=== PATIENT | female | born 1985 | race African-American/Black ===

== ENCOUNTER 2017-10-10 02:23 | Emergency (ER) | payer OTHER ==
[2017-10-10 02:44] VITALS: BP 113/101; PULSE 100; TEMP 97.6; BMI 32.3
--- NOTE | 2017-10-10 03:12 | PDOC ---
History of Present Illness - General History Source: Patient Exam Limitations: No Limitations - History of Present Illness Initial Comments: 10/10/17 03:39 The patient is a 32 year old female with no significant PMH who presents to the emergency department with headaches for the past week and shortness of breath for the past three days. The patient states she is experiencing shortness of breath approximately once a day. The patient states her SOB is exacerbated with exertion. The patient reports she regularly does cardio exercises but does not feel SOB while exercising. She notes her most recent episode of shortness of breath was about 10 minutes ago. The patient notes she normally has headaches when she is on her menses. The patient states she took Excedrin for the headache with no relief but expresses more concerned about her SOB. The patient reports her LMP was at the beginning of this month. The patient also states she has had some drastic diet changes recently. The patient denies chest pain and dizziness. Denies fever, chills, nausea, vomit, diarrhea and constipation. Denies dysuria, frequency, urgency and hematuria. The patient denies any recent travel or long trips. Allergies: NKA Past surgical history: Right breast surgery (?) Social history: No reported alcohol, drug, or cigarette use. PCP: Dr. Avila <Jeni Jimenez - Last Filed: 10/10/17 04:19> <Vicenta Wang - Last Filed: 10/10/17 06:38> - General Chief Complaint: Headache Stated Complaint: SHORTNESS OF BREATH Time Seen by Provider: 10/10/17 02:45 Past History <Jeni Jimenez - Last Filed: 10/10/17 04:19> - Past Medical History COPD: No Thyroid Disease: No - Reproductive History (#): 3 Para: 1 Therapeutic (s) & number: Yes (2) - Immunization History Immunization Up to Date: Yes - Suicide/Smoking/Psychosocial Hx Smoking History: Never smoked Have you smoked in the past 12 months: No Information on smoking cessation initiated: No Hx Alcohol Use: No Drug/Substance Use Hx: No Substance Use Type: None <Vicenta Wang - Last Filed: 10/10/17 06:38> - Past Medical History Allergies/Adverse Reactions: Allergies Allergy/AdvReac Type Severity Reaction Status Date / Time No Known Allergies Allergy Verified 10/10/17 02:41 Home Medications: Ambulatory Orders Aspirin/Acetaminophen/Caffeine [Excedrin Migraine Caplet] 1 each PO PRN PRN Review of Systems - Review of Systems Able to Perform ROS?: Yes Comments:: 10/10/17 03:43 GENERAL/CONSTITUTIONAL: No fever or chills. No weakness. HEAD, EYES, EARS, NOSE AND THROAT: No change in vision. No ear pain or discharge. No sore throat. CARDIOVASCULAR: (+) Shortness of breath. No chest pain. RESPIRATORY: No cough, wheezing, or hemoptysis. GASTROINTESTINAL: No nausea, vomiting, diarrhea or constipation. GENITOURINARY: No dysuria, frequency, or change in urination. MUSCULOSKELETAL: No joint or muscle swelling or pain. No neck or back pain. SKIN: No rash NEUROLOGIC: (+) headache. No vertigo, loss of consciousness, or change in strength/sensation. ENDOCRINE: No increased thirst. No abnormal weight change. HEMATOLOGIC/LYMPHATIC: No anemia, easy bleeding, or history of blood clots. ALLERGIC/IMMUNOLOGIC: No hives or skin allergy. <Jeni Jimenez - Last Filed: 10/10/17 04:19> *Physical Exam - Vital Signs Last Vital Signs Temp Pulse Resp BP Pulse Ox 97.6 F 100 H 16 113/101 100 10/10/17 02:41 10/10/17 02:41 10/10/17 02:41 10/10/17 02:41 10/10/17 02:41 - Physical Exam Comments: 10/10/17 03:45 ADULT EXAM GENERAL: Awake, alert, and fully oriented, in no acute distress HEAD: No signs of trauma EYES: PERRLA, EOMI, sclera anicteric, conjunctiva clear ENT: Auricles normal inspection, hearing grossly normal, nares patent, oropharynx clear without exudates. Moist mucosa NECK: Normal ROM, supple, no lymphadenopathy, JVD, or masses LUNGS: Breath sounds equal, clear to auscultation bilaterally. No wheezes, and no crackles HEART: (+) Splitting of S1. Regular rate and rhythm, normal S2, no murmurs, rubs or gallops ABDOMEN: Soft, nontender, normoactive bowel sounds. No guarding, no rebound. No masses EXTREMITIES: Normal range of motion, no edema. No clubbing or cyanosis. No cords, erythema, or tenderness NEUROLOGICAL: Cranial nerves II through XII grossly intact. Normal speech, normal gait SKIN: Warm, Dry, normal turgor, no rashes or lesions noted. <Jeni Jimenez - Last Filed: 10/10/17 04:19> - Vital Signs Last Vital Signs Temp Pulse Resp BP Pulse Ox 97.6 F 100 H 16 113/101 100 10/10/17 02:41 10/10/17 02:41 10/10/17 02:41 10/10/17 02:41 10/10/17 02:41 <Vicenta Wang - Last Filed: 10/10/17 06:38> ED Treatment Course - LABORATORY CBC & Chemistry Diagram: 10/10/17 03:30 10/10/17 03:30 <Jeni Jimenez - Last Filed: 10/10/17 04:19> - LABORATORY CBC & Chemistry Diagram: 10/10/17 03:30 10/10/17 03:30 - RADIOLOGY Radiology Studies Ordered: Category Date Time Status CHEST PA & LAT [RAD] Stat Radiology 10/10/17 03:12 Ordered <Vicenta Wang - Last Filed: 10/10/17 06:38> Medical Decision Making - Medical Decision Making 10/10/17 06:37 Pt comes with SOB and weakness. SHe has been dieting and barely eating and drinking and she is on a new exercise regimen. CXR nomal. Labs normal. But pt has elevated d-dimer. Pt had a CTA and it is normal Pt advised to have a less severe diet exercise regimen. Stable for d/c <Vicenta Wang - Last Filed: 10/10/17 06:38> *DC/Admit/Observation/Transfer - Attestations Scribe Attestion: 10/10/17 03:47 Documentation prepared by Jeni Jimenez, acting as internist medical doctor md for Vicenta Wang MD. <Jeni Jimenez - Last Filed: 10/10/17 04:19> <Vicenta Wang - Last Filed: 10/10/17 06:38> Diagnosis at time of Disposition: Dyspnea - Discharge Dispostion Disposition: HOME Condition at time of disposition: Stable - Referrals Referrals: Austin,David N., MD [Primary Care Provider] - - Patient Instructions Printed Discharge Instructions: The Mediterranean Diet and Good Health - Post Discharge Activity
[2017-10-10 03:44] LABS: BASO % 0.3 % (0-2.0); HEMATOCRIT 35.1 % (32.4-45.2); HEMOGLOBIN 11.4 GM/dL (10.7-15.3); LYMPH % 26.5 % (8-40); MCH 27.5 pg (25.7-33.7); MCHC 32.4 g/dl (32.0-36.0); MEAN PLT VOLUME 9.7 fl (7.5-11.1); MONO % 12.9 % (3.8-10.2); NEUT % 59.3 % (42.8-82.8); PLATELET COUNT 244 K/MM3 (134-434); RBC 4.13 M/mm3 (3.60-5.2); WHITE BLOOD COUNT 5.8 K/mm3 (4.0-10.0)
[2017-10-10 03:54] LABS: INR 1.19 (0.82-1.09); PROTHROMBIN TIME (PATIENT) 13.5 SEC (9.98-11.88)
[2017-10-10 04:15] LABS: ALBUMIN 3.1 g/dl (3.4-5.0); ANION GAP 12 (8-16); BILIRUBIN,TOTAL 0.2 mg/dL (0.2-1.0); BLOOD UREA NITROGEN 18 mg/dL (7-18); CALCIUM 8.7 mg/dL (8.5-10.1); CHLORIDE 107 mmol/L (98-107); CO2 21 mmol/L (21-32); CREATININE 0.6 mg/dL (0.55-1.02); GLUCOSE,RANDOM 107 mg/dL (74-106); POTASSIUM 4.3 mmol/L (3.5-5.1); SGOT/AST 23 U/L (15-37); SGPT/ALT 31 U/L (12-78); SODIUM 140 mmol/L (136-145); TOT PROT 7.3 g/dl (6.4-8.2)
[2017-10-10 04:17] LABS: ALK PHOS 57 U/L (45-117)
[2017-10-10 06:46] LABS: COCAINE, UR NEGATIVE ng/ml (CUTOFF=300); METHADONE, UR NEGATIVE ng/ml (CUTOFF=300); OPIATES, URI NEGATIVE ng/ml (CUTOFF=300); PHENCYCLIDINE,URINE NEGATIVE ng/ml (CUTOFF=25); URINE AMPHETAMINES NEGATIVE ng/ml (CUTOFF=500); URINE BARBITURATES NEGATIVE ng/ml (CUTOFF=200); URINE BENZODIAZEPINES NEGATIVE ng/ml (CUTOFF=200)
--- NOTE | 2017-10-10 10:27 | EKG ---
Test Reason : Blood Pressure : / mmHG Vent. Rate : 086 BPM Atrial Rate : 086 BPM P-R Int : 152 ms QRS Dur : 082 ms QT Int : 372 ms P-R-T Axes : 042 046 037 degrees QTc Int : 445 ms NORMAL SINUS RHYTHM NORMAL ECG NO PREVIOUS ECGS AVAILABLE BASELINE ARTIFACT Confirmed by RACHEL DAVID, TUNDE ([id number]) on 10/10/2017 10:27:01 AM Referred By: Confirmed By:TUNDE RAMOS MD
== END 2017-10-10 06:12 | disposition home or self-care (01) ==
LOC: JER 02:23
DX: R06.09 Other forms of dyspnea (principal)
CPT/HCPCS: 36415; 71275-TC; 80053; 80307; 82550; 84484; 84702; 85025; 85379; 85610; 93005; 93010; 99282-25

== ENCOUNTER 2023-07-20 14:28 | Emergency (ER) | payer OTHER ==
[2023-07-20 14:42] VITALS: BP 124/73; PULSE 81; RESP 20; TEMP 98; BMI 36.8
[2023-07-20] MEDS ORDERED: ACETAMINOPHEN 1000 MG/100 ML BAG IVPB ONE (15:31)
[2023-07-20] MEDS ORDERED: SODIUM CHLORIDE 0.9% 500 ML INFUS.BAG IV ONE (15:31)
[2023-07-20] MEDS ORDERED: ACETAMINOPHEN INJECTION 100 ML IVPB ONE (16:38)
[2023-07-20 16:44] LABS: BASO % 0.4 % (0-2.0); EOS % 0.5 % (0-4.5); HEMATOCRIT 37.7 % (32.4-45.2); HEMOGLOBIN 12.7 GM/dL (10.7-15.3); LYMPH % 21.7 % (8-40); MCH 29.7 pg (25.7-33.7); MCHC 33.8 g/dl (32.0-36.0); MEAN CELL VOLUME 87.7 fl (80-96); MEAN PLT VOLUME 10.2 fl (7.5-11.1); MONO % 5.6 % (3.8-10.2); NEUT % 71.8 % (42.8-82.8); PLATELET COUNT 248 10^3/uL (134-434); RDW 13.8 % (11.6-15.6); WHITE BLOOD COUNT 9.5 K/mm3 (4.0-10.0)
[2023-07-20 16:55] LABS: POTASSIUM 4.7 mmol/L (3.5-5.1)
[2023-07-20 16:57] LABS: CALCIUM 8.9 mg/dL (8.5-10.1)
[2023-07-20 16:58] LABS: ALBUMIN 3.4 g/dl (3.4-5.0); BLOOD UREA NITROGEN 8.9 mg/dL (7-18)
[2023-07-20 17:00] LABS: CREATININE 0.7 mg/dL (0.55-1.3)
[2023-07-20 17:02] LABS: BILIRUBIN,TOTAL 0.2 mg/dL (0.2-1); TOT PROT 7.6 g/dl (6.4-8.2)
[2023-07-20 17:12] LABS: URINE APPEARANCE CLEAR; URINE BILIRUBIN NEGATIVE (NEGATIVE); URINE COLOR YELLOW; URINE GLUCOSE (UA) NEGATIVE (NEGATIVE); URINE KETONE TRACE (NEGATIVE); URINE LEUK ESTERASE NEGATIVE (NEGATIVE); URINE NITRITE NEGATIVE (NEGATIVE); URINE PROTEIN NEGATIVE (NEGATIVE); URINE UROBILINOGEN 0.2 mg/dL (0.2-1.0)
[2023-07-20 17:16] LABS: HCG,QUALITATIVE URINE Positive
== END 2023-07-20 19:04 | disposition home or self-care (01) ==
LOC: JER 14:28
PROC: 3E033NZ Introduction of Analgesics, Hypnotics, Sedatives into Peripheral Vein, Percutaneous Approach (ICD-10-PCS; principal; 2023-07-20)
DX: O26.891 Other specified pregnancy related conditions, first trimester (principal); R10.9 Unspecified abdominal pain; R14.0 Abdominal distension (gaseous); R63.0 Anorexia; R11.0 Nausea; R09.81 Nasal congestion; O99.211 Obesity complicating pregnancy, first trimester; E66.01 Morbid (severe) obesity due to excess calories; Z68.36 Body mass index [BMI] 36.0-36.9, adult; Z20.822 Contact with and (suspected) exposure to COVID-19; Z3A.01 Less than 8 weeks gestation of pregnancy
CPT/HCPCS: 0241U-QW; 36415; 76817-TC; 80053; 81003; 83690; 84702; 84703; 85025; 87086; 99284-25

== ENCOUNTER 2023-07-26 16:49 | Emergency (ER) | payer OTHER ==
[2023-07-26 17:00] VITALS: TEMP 98.2; BMI 37.5
[2023-07-26 17:57] LABS: HEMATOCRIT 38.1 % (32.4-45.2); HEMOGLOBIN 12.1 GM/dL (10.7-15.3); MCH 28.7 pg (25.7-33.7); MCHC 31.7 g/dl (32.0-36.0); MEAN CELL VOLUME 90.4 fl (80-96); MEAN PLT VOLUME 10.3 fl (7.5-11.1); PLATELET COUNT 237 10^3/uL (134-434); RBC 4.21 M/mm3 (3.60-5.2); RDW 13.6 % (11.6-15.6); WHITE BLOOD COUNT 11.2 K/mm3 (4.0-10.0)
[2023-07-26 18:04] LABS: INR 1.03 (0.83-1.09)
[2023-07-26 18:07] LABS: ACTIVATED PTT 32.7 SECONDS (25.2-36.5)
[2023-07-26 18:14] LABS: POTASSIUM 4.2 mmol/L (3.5-5.1)
[2023-07-26 18:16] LABS: ALBUMIN 3.4 g/dl (3.4-5.0); CALCIUM 8.7 mg/dL (8.5-10.1)
[2023-07-26 18:17] LABS: BLOOD UREA NITROGEN 12.6 mg/dL (7-18)
[2023-07-26 18:19] LABS: CREATININE 0.8 mg/dL (0.55-1.3)
[2023-07-26 18:21] LABS: BILIRUBIN,TOTAL 0.2 mg/dL (0.2-1); TOT PROT 7.7 g/dl (6.4-8.2)
[2023-07-26 18:53] LABS: URINE APPEARANCE CLEAR; URINE BILIRUBIN NEGATIVE (NEGATIVE); URINE COLOR YELLOW; URINE GLUCOSE (UA) NEGATIVE (NEGATIVE); URINE KETONE TRACE (NEGATIVE); URINE LEUK ESTERASE NEGATIVE (NEGATIVE); URINE NITRITE NEGATIVE (NEGATIVE); URINE PROTEIN NEGATIVE (NEGATIVE)
[2023-07-27 00:59] VITALS: BP 113/60; PULSE 70; RESP 16
== END 2023-07-27 01:14 | disposition home or self-care (01) ==
LOC: JERFT 16:49
DX: O26.891 Other specified pregnancy related conditions, first trimester (principal); R06.02 Shortness of breath; Z3A.01 Less than 8 weeks gestation of pregnancy; Z20.822 Contact with and (suspected) exposure to COVID-19
CPT/HCPCS: 0241U-QW; 36415; 71275-TC; 76817-TC; 80053; 81003; 84702; 85027; 85610; 85730; 93005; 93010; 99285-25; Q9967

== ENCOUNTER 2024-02-22 05:25 | Inpatient (IN) | payer OTHER ==
[2024-02-22 06:13] VITALS: BMI 43.8
[2024-02-22] MEDS: ELECTROLYTE-148 SOLN 500 ML IV SCH ×2 (06:30→06:45)
[2024-02-22] MEDS: CITRIC ACID/SODIUM CITRATE 30 ML UNIT-DOSE CUP PO ONE (07:00)
[2024-02-22] MEDS ORDERED: ONDANSETRON 4 MG/2 ML VIAL IVPUSH PRN (07:45)
[2024-02-22] MEDS ORDERED: ACETAMINOPHEN 325 MG TABLET (FP) PO PRN (07:45)
[2024-02-22] MEDS ORDERED: IBUPROFEN 600 MG TABLET (FP) PO PRN (07:45)
[2024-02-22] MEDS ORDERED: morphine SULFATE/PF 1 MG/2 ML (2cc Syringe - QUVA) ONE (07:52)
[2024-02-22] MEDS ORDERED: ceFAZolin SODIUM 1 GM VIAL ONE (07:53)
[2024-02-22] MEDS ORDERED: SODIUM CHLORIDE 0.9% P/F 10 ML VIAL IJ ONE (07:53)
[2024-02-22] MEDS ORDERED: PHENYLEPHRINE HCL 10 MG/1 ML SINGLE DOSE VIAL ONE (07:53)
[2024-02-22] MEDS ORDERED: METOCLOPRAMIDE HCL INJECTION 10 MG/2 ML VIAL ONE (08:26)
[2024-02-22] MEDS ORDERED: ONDANSETRON 4 MG/2 ML VIAL ONE (08:26)
[2024-02-22] MEDS ORDERED: OXYTOCIN 10 UNITS/ML VIAL ONE (08:46)
[2024-02-22] MEDS ORDERED: CITRIC ACID/SODIUM CITRATE 30 ML UNIT-DOSE CUP PO ONE (09:43)
[2024-02-22] MEDS ORDERED: METHYLERGONOVINE MALEATE 0.2 MG/1 ML AMP IM PRN (09:45)
[2024-02-22] MEDS ORDERED: ELECTROLYTE-148 SOLN 1,000 ML IV SCH (09:45)
[2024-02-22] MEDS ORDERED: ACETAMINOPHEN 1000 MG/100 ML BAG IVPB PRN (09:53)
[2024-02-22] MEDS: OXYTOCIN 20 UNITS in 0.9% NS 20 UNIT/1,000 ML INFUS.BAG IV SCH (10:30)
[2024-02-22] MEDS: morphine SULFATE/PF 1 MG/2 ML (2cc Syringe - QUVA) EP ONE (10:33)
[2024-02-22] MEDS ORDERED: OXYTOCIN 20 UNITS in 0.9% NS 20 UNIT/1,000 ML INFUS.BAG IV ONE (10:35)
[2024-02-22] MEDS ORDERED: LABETALOL HCL 200 MG TABLET (FP) ONE (10:35)
[2024-02-22] MEDS: LABETALOL HCL 200 MG TABLET (FP) PO SCH (10:37)
[2024-02-22] MEDS: ELECTROLYTE-148 SOLN 500 ML IV ONE (12:31)
[2024-02-22] MEDS: PRENATAL VITAMINS W/ FOLIC ACID TABLET (FP) PO SCH (12:36)
[2024-02-22] MEDS: FERROUS SO4 325 MG TABLET (FP) PO SCH (12:37)
[2024-02-22] MEDS: amLODIPine BESYLATE 5 MG TABLET (FP) PO SCH (17:16)
[2024-02-22 21:21] VITALS: RESP 18
[2024-02-22] MEDS ORDERED: oxyCODONE HCL 5 MG TABLET PO PRN (21:45)
[2024-02-22] MEDS: IBUPROFEN 800 MG/8 ML IJ IVPB PRN (23:37)
[2024-02-23 06:50] LABS: BASO % 0.3 % (0-2.0); EOS % 0.1 % (0-4.5); HEMATOCRIT 25.6 % (32.4-45.2); HEMOGLOBIN 8.2 GM/dL (10.7-15.3); LYMPH % 9.2 % (8-40); MCH 27.3 pg (25.7-33.7); MCHC 32.2 g/dl (32.0-36.0); MEAN CELL VOLUME 84.8 fl (80-96); MEAN PLT VOLUME 11.4 fl (7.5-11.1); MONO % 6.3 % (3.8-10.2); NEUT % 84.1 % (42.8-82.8); PLATELET COUNT 120 10^3/uL (134-434); RBC 3.02 M/mm3 (3.60-5.2); RDW 14.4 % (11.6-15.6)
[2024-02-23] MEDS: ACETAMINOPHEN 325 MG TABLET (FP) PO PRN (09:09)
[2024-02-23] MEDS: SIMETHICONE 80 MG TAB.CHEW (FP) PO PRN (09:09)
[2024-02-23] MEDS ORDERED: BISACODYL 10 MG SUPP.RECT RC PRN (09:45)
[2024-02-23] MEDS: SENNOSIDES/DOCUSATE COMBO (SENNA PLUS) TABLET (UD) PO PRN (13:36)
[2024-02-23] MEDS: IBUPROFEN 600 MG TABLET (FP) PO PRN (13:36)
[2024-02-23] MEDS: metFORMIN HCL 500 MG TABLET (FP) PO SCH (16:48)
[2024-02-24] MEDS: oxyCODONE HCL 5 MG TABLET PO PRN (20:36)
[2024-02-26 10:00] VITALS: BP 115/72; PULSE 89; TEMP 98
== END 2024-02-26 17:00 | disposition home or self-care (01) | DRG 540 ==
LOC: JLDR 05:25 → UNDOADMIN 05:31 → JERBED 05:31 → JLDR 05:35 → JERBED 05:35 → J3W 11:40
PROVIDERS: ADMIT Obstetrics & Gynecology; ATTEND Obstetrics & Gynecology
PROC: 10D00Z1 Extraction of Products of Conception, Low, Open Approach (ICD-10-PCS; principal; 2024-02-22)
DX: O34.211 Maternal care for low transverse scar from previous cesarean delivery (principal); N85.8 Other specified noninflammatory disorders of uterus; O10.92 Unspecified pre-existing hypertension complicating childbirth; O99.214 Obesity complicating childbirth; O24.424 Gestational diabetes mellitus in childbirth, insulin controlled; Z3A.38 38 weeks gestation of pregnancy; Z37.0 Single live birth
CPT/HCPCS: 36415; 80053; 82962; 85025; 85610; 85730; 86780; 86803; 86850; 86900; 86901; 87389; 88307-TC; 94010

== ENCOUNTER 2024-03-09 13:24 | Emergency (ER) | payer OTHER ==
[2024-03-09 13:42] VITALS: BMI 42.3
[2024-03-09] MEDS ORDERED: METOCLOPRAMIDE HCL INJECTION 10 MG/2 ML VIAL ONE (14:40)
[2024-03-09] MEDS ORDERED: ACETAMINOPHEN INJECTION 100 ML IVPB ONE (14:40)
[2024-03-09 14:45] LABS: BASO % 1.2 % (0-2.0); EOS % 2.7 % (0-4.5); HEMATOCRIT 29.7 % (32.4-45.2); HEMOGLOBIN 9.5 GM/dL (10.7-15.3); LYMPH % 26.7 % (8-40); MCH 26.6 pg (25.7-33.7); MCHC 31.9 g/dl (32.0-36.0); MEAN CELL VOLUME 83.3 fl (80-96); MEAN PLT VOLUME 10.6 fl (7.5-11.1); MONO % 7.2 % (3.8-10.2); NEUT % 62.2 % (42.8-82.8); PLATELET COUNT 289 10^3/uL (134-434); RBC 3.57 M/mm3 (3.60-5.2); RDW 15.6 % (11.6-15.6)
[2024-03-09 14:46] LABS: URINE APPEARANCE CLEAR; URINE BILIRUBIN NEGATIVE (NEGATIVE); URINE COLOR YELLOW; URINE GLUCOSE (UA) NEGATIVE (NEGATIVE); URINE KETONE NEGATIVE (NEGATIVE); URINE LEUK ESTERASE NEGATIVE (NEGATIVE); URINE NITRITE NEGATIVE (NEGATIVE); URINE PROTEIN NEGATIVE (NEGATIVE); URINE UROBILINOGEN 0.2 mg/dL (0.2-1.0)
[2024-03-09 14:51] LABS: INR 1.02 (0.83-1.09); PROTHROMBIN TIME (PATIENT) 11.5 SEC (9.7-13.0)
[2024-03-09 14:53] LABS: ACTIVATED PTT 35.6 SECONDS (25.2-36.5)
[2024-03-09] MEDS: ACETAMINOPHEN 1000 MG/100 ML BAG IVPB ONE (14:53)
[2024-03-09] MEDS: METOCLOPRAMIDE HCL INJECTION 10 MG/2 ML VIAL IVPUSH ONE (14:53)
[2024-03-09 15:03] LABS: POTASSIUM 4.7 mmol/L (3.5-5.1)
[2024-03-09 15:06] LABS: BLOOD UREA NITROGEN 10.8 mg/dL (7-18); CALCIUM 8.6 mg/dL (8.5-10.1); MAGNESIUM 2.1 mg/dL (1.8-2.4)
[2024-03-09 15:08] LABS: CREATININE 0.9 mg/dL (0.55-1.3)
[2024-03-09 15:11] LABS: BILIRUBIN,TOTAL 0.4 mg/dL (0.2-1)
[2024-03-09] MEDS ORDERED: amLODIPine BESYLATE 10 MG TABLET (FP) ONE (15:24)
[2024-03-09] MEDS: amLODIPine BESYLATE 10 MG TABLET (FP) PO ONE (16:42)
[2024-03-09 17:12] VITALS: BP 126/78; PULSE 60; RESP 18; TEMP 98.3
[2024-03-09] MEDS ORDERED: FUROSEMIDE 40 MG/4 ML INJECTABLE VIAL ONE (18:01)
[2024-03-09] MEDS: FUROSEMIDE 40 MG/4 ML INJECTABLE VIAL IVPUSH ONE (18:09)
== END 2024-03-09 18:32 | disposition home or self-care (01) ==
LOC: JER 13:24
PROC: 3E033NZ Introduction of Analgesics, Hypnotics, Sedatives into Peripheral Vein, Percutaneous Approach (ICD-10-PCS; principal; 2024-03-09)
PROC: 3E033GC Introduction of Other Therapeutic Substance into Peripheral Vein, Percutaneous Approach (ICD-10-PCS; 2024-03-09)
PROC: 3E033GC Introduction of Other Therapeutic Substance into Peripheral Vein, Percutaneous Approach (ICD-10-PCS; 2024-03-09)
DX: R60.0 Localized edema (principal); R51.9 Headache, unspecified; M79.671 Pain in right foot; M79.672 Pain in left foot
CPT/HCPCS: 36415; 70450-TC; 71045-TC-FY; 80053; 81003; 83735; 83880; 85025; 85610; 85730; 87086; 93970-TC; 99285-25; J0131